=== PATIENT | female | born 1970 | race Caucasian/White ===

== ENCOUNTER 2016-04-07 17:51 | Emergency (ER) | payer MEDICAID ==
[2016-04-07 18:04] VITALS: BP 119/78; PULSE 70; RESP 18; TEMP 98.2; O2SAT 97
[2016-04-07] MEDS ORDERED: OXYCODONE/APAP 5/325MG PREPACK#4 BTL TAKEHOME ONE (18:17)
--- NOTE | 2016-04-07 18:25 | UCPHY ---
H & P Patient Type: Established Smoking Status: Former smoker HPI/ROS: CHIEF COMPLAINT: Left wrist pain, carpal tunnel HISTORY OF PRESENT ILLNESS: reports 2 month history of left wrist pain that has been diagnosed as carpal tunnel syndrome by her orthopedist and physical therapist. No EMG. No splinting no imaging. No fall or injury on it. She notes that earlier today the pain began worsening. Moderate to severe pain. Refractory to a leftover [place] she had. No numbness or tingling at rest. Worse with flexion of the wrist when sleeping. Improves minimally at rest. No position of comfort. No weakness of the hand or thumb. No trauma at any point. No other associated complaints or modifying factors. right hand dominant PRIOR ORTHO INJURIES: Carpal tunnel syndrome left ESTABLISHED ORTHOPEDIST: SAMANTHA Amado REVIEW OF SYSTEMS: Ten systems reviewed and are negative unless otherwise noted in the HPI EXAMINATION General Appearance: Alert, no distress, crying Head: normocephalic, atraumatic Eyes: Pupils equal and round, no conjunctival pallor or injection Respiratory: No dyspnea or retractions. No distress Cardiovascular: Pulses normal throughout with symmetric radial at 2+. Brisk cap refill Gastrointestinal: No distention Neurological: A&O, paresthesias of the left hand in the median distribution. No weakness of the thenar eminence. Strength is 5/5 in both limbs Skin: Warm and dry, no rash Extremities: tenderness to palpation of the left wrist or circumferential. no snuffbox or point tenderness. Positive Phalen's. Psychiatric: Mood and affect normal MDM: 6:20 p.m. left carpal tunnel pain of the wrist without any trauma or injury. No indication for imaging at this time as she has no injury to the area. Pain is consistent with her previous pain from carpal tunnel as the intermittent paresthesia. Patient has an established orthopedist she will contact tomorrow. I will place her in a cock-up wrist splint and provide a short course of pain medication as she does have a clean narcotic history by FIELD ASSOCIATE monitoring. Patient is comfortable with this plan. She is neurovascular intact and discharged home in stable condition. ED Precautions: Worsening pain. Erythema, edema, cyanosis, pallor, paresthesia or anesthesia. SUPERVISION: This patient was independently evaluated without the aide of supervising physician. (Derek Strange) Constitutional: Initial Vital Signs Temperature (C) 36.8 C 04/07/16 17:57 Heart Rate 70 04/07/16 17:57 Respiratory Rate 18 04/07/16 17:57 Blood Pressure 119/78 04/07/16 17:57 O2 Sat (%) 97 04/07/16 17:57 O2 Delivery Mode Room Air Allergies/Adverse Reactions: Latex, Natural Rubber Allergy (Verified 04/07/16 17:56) Rash Home Medications: Medication Instructions Recorded Singulair 02/25/14 Verapamil 02/25/14 Mobic 15 mg 09/09/15 Celexa 01/04/16 Magnesium 01/04/16 PRILOSEC 01/04/16 Proair Hfa Icu (*) 01/04/16 Cymbalta 01/26/16 Lexapro 01/26/16 Gabapentin [Neurontin 300 MG (*)] 300 mg PO BID PRN #15 cap 04/07/16 oxyCODONE HCL/ACETAMINOPHEN 1 each PO Q4-6PRN PRN #20 tablet 04/07/16 [Percocet 5-325 mg Tablet] MDM/Departure - MDM Medications Given: Discontinued Medications Oxycodone/Acetaminophen (Percocet 5/325mg Prepack#4) 1 btl TAKEHOME EDNOW ONE Stop: 04/07/16 18:18 Last Admin: 04/07/16 18:33 Dose: 1 btl ED Course/Re-evaluation: The patient was evaluated and managed by the Physician Utility Bill Collection Clerk, Derek Strange. My co-signature indicates that I have reviewed this chart and I agree with the findings and plan of care as documented. I am the secondary supervising physician. (Luciana Duarte) - Depart Disposition: Home, Routine, Self-Care Clinical Impression: Left carpal tunnel syndrome Condition: Good Instructions: Paresthesia (ED), Arthralgia (ED) Additional Instructions: Follow-up with established orthopedist or orthopedist in tube conversion technician as listed. Prescriptions: Gabapentin [Neurontin 300 MG (*)] 300 mg PO BID PRN #15 cap PRN Reason: Pain, Breakthrough oxyCODONE HCL/ACETAMINOPHEN [Percocet 5-325 mg Tablet] 1 each PO Q4-6PRN PRN # 20 tablet PRN Reason: Pain, Moderate Referrals: Elida Gray PA [Primary Care Provider] - As per Instructions - PQRS PQRS Measurement: Not applicable (Derek Strange)
== END 2016-04-07 18:35 | disposition home or self-care (01) ==
LOC: CED 17:51
DX: G56.02 Carpal tunnel syndrome, left upper limb (principal)
CPT/HCPCS: 99214-PO; G0463-PO; L3908

== ENCOUNTER → 2016-05-10 | Outpatient (CLI) | payer MEDICAID | LOC: CIMAGING 11:44 | PROVIDERS: ATTEND Physician Assistant Medical | DX: M79.642 Pain in left hand (principal); M25.532 Pain in left wrist | CPT/HCPCS: 73100-PO; 73120-PO ==

== ENCOUNTER 2016-05-25 09:21 | Day surgery (SDC) | payer MEDICAID ==
[~2016-05-25 09:21] MED LIST: ceFAZolin 2 GM/DEXTROSE 100 ML IV ONE
[2016-05-25] MEDS ORDERED: LR 1,000 ML IV ONE (09:59)
[2016-05-25] MEDS ORDERED: CEFAZOLIN 2 GM/DEXTROSE/100 ML BAG IV ONE (10:07)
[2016-05-25] MEDS ORDERED: LIDOCAINE 1% 2 ML INJ ONE (10:08)
[2016-05-25] MEDS ORDERED: BUPIVACAINE 0.25% 30 ML SDV ONE (10:31)
[2016-05-25] MEDS ORDERED: LIDOCAINE 2% 5 ML SDV ONE ×2 (10:31→12:16)
[2016-05-25] MEDS ORDERED: BACITRACIN 50,000 UNITS/10 ML SYR IRR ONE (10:32)
[2016-05-25] MEDS ORDERED: BUPIVACAINE/EPI 0.25% 30 ML SDV ONE (10:32)
[2016-05-25] MEDS ORDERED: MIDAZOLAM 2 MG/2 ML VIAL ONE (11:31)
[2016-05-25] MEDS ORDERED: fentaNYL 100 MCG/2 ML INJ ONE (11:32)
[2016-05-25] MEDS ORDERED: PROPOFOL/EMULSION 500 MG/50 ML BOTTLE IV ONE (11:32)
[2016-05-25] MEDS ORDERED: ONDANSETRON 4 MG/2 ML VIAL ONE (12:16)
[2016-05-25] MEDS ORDERED: ALBUTEROL HFA ANES ONLY 200 PUFFS/8.5 GM MDI IH ONE (12:16)
[2016-05-25] MEDS ORDERED: ROPIVACAINE HCL 150 MG/30 ML INJ ONE (12:16)
[2016-05-25] MEDS ORDERED: DEXAMETHASONE 4 MG/ML VIAL ONE ×3 (12:16)
[2016-05-25] MEDS ORDERED: PROPOFOL 200 MG/20 ML VIAL ONE (13:35)
--- NOTE | 2016-05-28 14:43 | GOP ---
[f rep st] OPERATIVE REPORT DATE OF OPERATION: 05/25/2016 SURGEON: Colin Hilario DPM COST ESTIMATING CLERK: None. ANESTHESIA: Local with MAC ANESTHESIOLOGIST: Mary Beth Valdes MD PREOPERATIVE DIAGNOSIS: 1. Calcaneocuboid degenerative arthritis, left. 2. Peroneal brevis tendinosis, left. POSTOPERATIVE DIAGNOSIS: 1. Calcaneocuboid degenerative arthritis, left. 2. Peroneal brevis tendon tear, left. PROCEDURE PERFORMED: 1. Calcaneocuboid arthrodesis. 2. Peroneal brevis tendon repair, left. 3. AmnioFIX grafting. FINDINGS: SPECIMENS: None. ESTIMATED BLOOD LOSS: Minimal. DESCRIPTION OF PROCEDURE: The patient presented to [facility], was cleared for the in tended procedure. The patient was taken to the operating room, placed on the table in the supine position. IV sedatio n was started per the anesthesia department. A nerve block was also performed by the anesthesia dep artment at this time. A small amount of local was then infiltrated around the surgical site in an i nfiltrative nerve block fashion. Foot was prepped, scrubbed, and draped in the usual sterile fashio n. Following exsanguination by elevation of the Esmarch bandage, pneumatic ankle tourniquet was inflate d to 225 mmHg. At this time, attention was directed to the lateral aspect of the left foot where a linear incision was made over the calcaneocuboid joint before extending distal and plantarly to the 5th metatarsal base. This incision was carried deep utilizing sharp and blunt dissection, making javed re that all neurovascular structures were identified and retracted. At this time, all superficial b leeders were cauterized. The incision was carried down to the level of the calcaneocuboid joint. The Celestinoermann retractor was then placed over K-wires, placed into the calcaneus and cuboid, to allo w for adequate inspection of the calcaneocuboid joint. Given some grade 4 chondromalacia changes, i t was decided that fusion of the site would be necessary, especially given the previous cheilectomy of the area that had been unsuccessful. The remaining cartilaginous surface was removed with the sa gittal saw from both sides of the joint. The area was curetted to make sure that no remaining carti emi was noted before the area was drilled down to bleeding subchondral bone. Upon completion of this, the bones were reapproximated. It was decided that given some shortening t hat had occurred that bone grafting would be placed into the site. At this point, 2 cc of Affinity graft were placed into the area. The [id number] dog bone compression plate was placed over the site, and the area was prepped for insertion of 3.0 locking screws into the calcaneus. Upon completion of this, the nonlocking 4.2 screw was placed through the plate into the cuboid causi ng compression to occur at the fusion site. The 2 distal screws were then also placed into the cubo id with 3.5 locking screws. C-arm fluoroscopy at this time showed adequate alignment and compressio n occurring at the fusion site. The area was flushed with copious amounts of sterile saline before the capsule over the area was reapproximated with 3-0 Vicryl. Attention was then redirected to the peroneal tendon complex. The paratenon was incised and visuali zation of the area was performed. The peroneal brevis tendon was noted to have tearing distal to th e site where the previous tendon repair had been performed. It was decided that repair would be nec essary. At this point, the tendon was reapproximated with 3-0 Ethibond. It was decided that the te ndon along its entire course through both previous repairs would be would have AmnioFIX applied to t he site. The AmnioFIX was cut and placed appropriately over the area before the paratenon was reapp roximated. It was decided that the remaining AmnioFIX would then also be placed over the hardware a nd fusion site. The sutures were removed from the capsule in this area. It was placed appropriatel y before the capsule was again reapproximated. Upon completion of this, the areas were again flushe d with copious amounts of sterile saline before subcutaneous closure with 5-0 Vicryl and skin closur e with 5-0 nylon was performed. The areas were dressed with Betadine-soaked Adaptic, 4 x 4's, Kerli x, and Coban. The patient was then placed into a posterior splint and will be kept completely nonwe ightbearing for the next 4-6 weeks. The patient was taken to the recovery room, vital signs stable, vascular supply intact to digits 1-5 bilaterally. HEMOSTASIS: PAT at 225 mmHg by 109 minutes. MATERIALS: [id number], dog bone compression plate 25 mm, 3.5 locking screws by 20, 20, 22 and 28 mm, 4.2 nonlocking screw by 22 mm, 2 cc Affinity bone grafting, 24 units AmnioFix. INJECTABLES: 12 cc 0.25% Marcaine plain, 0.25% Marcaine with epinephrine preoperatively. COMPLICATIONS: None. /[id number]/MODL
== END 2016-05-25 17:00 | disposition home or self-care (01) ==
LOC: FSGY 09:21
PROVIDERS: ATTEND Podiatrist Primary Podiatric Medicine
PROC: 0LUP07Z Supplement Left Lower Leg Tendon with Autologous Tissue Substitute, Open Approach (ICD-10-PCS; principal; 2016-05-25 11:15)
PROC: 0LQP0ZZ Repair Left Lower Leg Tendon, Open Approach (ICD-10-PCS; principal; 2016-05-25 11:15)
PROC: 0SGJ07Z Fusion of Left Tarsal Joint with Autologous Tissue Substitute, Open Approach (ICD-10-PCS; principal; 2016-05-25 11:15)
DX: M19.072 Primary osteoarthritis, left ankle and foot (principal); M24.272 Disorder of ligament, left ankle; J45.909 Unspecified asthma, uncomplicated; I47.1 Supraventricular tachycardia; K21.9 Gastro-esophageal reflux disease without esophagitis; M79.7 Fibromyalgia
CPT/HCPCS: 15777; 27664; 28740; C1769; C1713; C1762; C9399; J0690; J1100; J2250; J2405; J2704; J2795; J3010

== ENCOUNTER → 2017-03-21 | Outpatient (CLI) | payer MEDICAID | LOC: CIMAGING 12:30 | PROVIDERS: ATTEND Physician Assistant Medical | DX: M25.551 Pain in right hip (principal); M25.552 Pain in left hip | CPT/HCPCS: 73521-PO ==